=== PATIENT | female | born 1945 | race Hispanic/Latino ===

== ENCOUNTER 2025-01-27 15:52 | Emergency (ER) | payer MEDICARE, OTHER ==
[~2025-01-27] VITALS: Ht 162.6 cm; Wt 63.0 kg
--- NOTE | 2025-01-27 17:07 | NUR ---
THE PATIENT REPORTS TAKING 500MG TYLENOL AT 2PM TODAY FOR PAIN RELIEF. ER ROTARY PUMP OPERATOR MADE AWARE. PER ER ROTARY PUMP OPERATOR, ORDERED DOSE OF 1000MG TYLENOL TO BE D/C.
--- NOTE | 2025-01-27 18:17 | HMCIMG ---
STUDY CR Right Wrist, 3 view HISTORY Fall TECHNIQUE Three radiographic projections of the right wrist. COMPARISON None provided. FINDINGS Bones There is a small cortical fracture fragment along the dorsal aspect of the distal carpal row, most compatible with an acute triquetral avulsion fracture. No additional acute fracture or aggressive osseous lesion is identified. There is generalized osteopenia involving the distal radius, ulna, carpal bones, and metacarpals. Joints No dislocation is seen and carpal alignment is preserved. There are degenerative changes at the first carpometacarpal joint with subchondral sclerosis and periarticular osteophyte formation. Soft tissues There is soft tissue swelling involving the distal forearm, wrist joint region, and hand. IMPRESSION * Acute dorsal triquetral fracture, manifested as a small fracture fragment along the posterior aspect of the distal carpal row. 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 * No additional acute fracture or dislocation of the right wrist. /[place]
--- NOTE | 2025-01-27 18:38 | ERN ---
ED Note History of Present Illness Stated Complaint: RIGHT WRIST PAIN Chief Complaint: Wrist Pain/Injury Time Seen by MD: 15:59 Time Seen by Midlevel: 16:02 Dictation: 79-year-old female coming in with complaints of right wrist pain. Patient states this morning she woke up fell backwards and use her hand to break her fall and is complaining of pain to that wrist. No other complaints. Denies any head injury, denies any blood thinners. Allergies: Coded Allergies: Penicillins (Verified Allergy, Unknown, 06/12/15) Past Medical History Past Medical History: Hypertension Additional Past Medical Hx: BREAST CANCER, COLON CANCER Surgical History: Other Surgical History Other: RIGHT MASTECTOMY Review of System Dictation Constitutional: Negative for fever,chills, and weight loss Eyes: Negative for injury, pain,redness, and discharge ENT: Negative for injury,pain or swelling Cardiovascular: Negative for chest pain, palpitations, and edema Respiratory: Negative for shortness of breath, cough, and wheezing, Abdomen/GI: Negative for abdominal pain, nausea, vomiting, diarrhea, and constipation Back: Negative for injury and pain : Negative for injury, bleeding and discharge MS/Extremity: Right wrist pain Skin: Negative for rash, and discoloration Neuro: Negative for headache, weakness, numbness, tingling, and seizure Psych: Negative for suicide ideation, homicidal ideation, and hallucinations Review of Systems: was completed Initial Vital Sign VS Vital Signs Date Time Temp Pulse Resp B/P (MAP) Pulse Ox O2 Delivery O2 Flow Rate FiO2 01/27/25 15:53 97.9 71 16 159/72 98 Room Air 01/27/25 17:10 0 21 Physical Exam Dictation General: awake, alert, NAD Head/Face: Normocephalic, atraumatic Eyes: PERRL, EOMI, vision at baseline ENT: oral cavity clear, TMs clear, no signs of infection Neck: Trachea midline, supple, no nuchal rigidity Cardiovascular: RRR, normal S1/S2, No MRGs, no JVD Respiratory: CTAB, no respiratory distress, No rales or wheezes Abdomen: Soft, non-tender, non-distended, normal bowel sounds, no guarding or rebound. Skin: Warm, dry, normal turgor, no rash MS/Extremity: Pulses equal, no cyanosis, neurovascular intact, FROM , palpation to the right wrist notable ecchymosis and swelling Neuro: COAx4, GCS 15, strength 5/5, CN 2-12 intact, normal cerebellar exam, normal gait, Psych: Normal behavior, mood, and affect normal ED Course ED Course Orders Procedure Category Date Status Time Wrist Comp 3+Vws Rt RAD 01/27/25 Resulted 16:13 Acetaminophen 500mg PHA 01/27/25 Complete Tab (Tylenol 500mg T 17:00 Current Medications Medications (Trade) Dose Ordered Sig/Ulisses Route PRN Reason Start Time Stop Time Status Last Admin Dose Admin Acetaminophen (TYLenol 500MG TAB) 1,000 mg ONCE ONCE PO 01/27/25 17:00 01/27/25 17:01 DC Vital Signs Date Time Temp Pulse Resp B/P (MAP) Pulse Ox O2 Delivery O2 Flow Rate FiO2 01/27/25 17:10 97.9 71 16 159/72 98 Room Air* 0 21 01/27/25 15:53 97.9 71 16 159/72 98 Room Air Medical Decision Making MDM MDM: 79-year-old female coming in with complaints of right wrist pain. Patient states this morning she woke up fell backwards and use her hand to break her fall and is complaining of pain to that wrist. No other complaints. Denies any head injury, denies any blood thinners. Shows acute dorsal triquetral fracture. Patient will be put on a volar splint and follow up with orthopedic outpatient. It discussed on red flag symptoms of when to return back to the emergency room and went to follow up with PCP. Patient verbalized understanding, answered all questions. Differential diagnosis: Wrist fracture, wrist contusion, wrist dislocations Rationale: Tests considered and ordered secondary to shared decision making include: Previous outside records reviewed: Old ER visits. Risk of complication and/or morbidity or mortality of patient management: None Medications-Per medication reconciliation Need for hospitalization: Patient does not meet criteria for hospitalization. Need for emergency major/minor surgery: No There are no social concerns with this patient. Prescription drug management Prescriptions will include symptomatic care Patient's prior external medical records from other ER visits were reviewed by me as indicated. Prior testing and results from previous visits were reviewed. Prior tests were taken into account with medical decision making and resource utilization, independent historian/historians were used to obtain complete medical history. I independently interpreted the test that were performed, results were reviewed by me and considered findings on radiology if ordered. Medical management and examination interpretation discussions were had by me with other qualified healthcare professionals as indicated for the patient's care. DX & DISP Disposition: Discharge Departure Impression: Primary Impression: Fracture, triquetral bone Condition: Stable Additional Instructions: Take Tylenol or Motrin [id number] for pain control. Follow up with the orthopedic surgeon outpatient. Return to the hospital if you develop any worsening pain, swelling, numbness tingling to your fingertips. Referrals: ALFREDO SAN DO Time of Disposition: 18:37 I have reviewed the case, and I agree with, Diagnosis and Plan SHERYL SORTO [facility] Jan 27, 2025 18:38
[2025-01-27 18:43] VITALS: BP 178/78; PULSE 74; RESP 20; TEMP 98.2; O2SAT 99
--- NOTE | 2025-01-27 18:46 | NUR ---
PER ER TANKAGE SUPERVISOR, ORTHOGLASS VOLAR SPLINT APPLIED TO RIGHT WRIST. DISTALL PULSE AND CAPILLARY REFILL ARE NORMAL. PATIENT AND FAMILY AT [facility] EDUCATED ON SPLINT CARE AND VERBALIZED UNDERSTANDING.
== END 2025-01-27 18:48 | disposition home or self-care (01) ==
LOC: EDH 15:52
DX: S62.111A Displaced fracture of triquetrum [cuneiform] bone, right wrist, initial encounter for closed fracture (principal); I10 Essential (primary) hypertension; Z88.0 Allergy status to penicillin; Z85.3 Personal history of malignant neoplasm of breast; Z85.038 Personal history of other malignant neoplasm of large intestine; Z90.11 Acquired absence of right breast and nipple; W18.39XA Other fall on same level, initial encounter; Y93.89 Activity, other specified; Y92.89 Other specified places as the place of occurrence of the external cause; Y99.8 Other external cause status
CPT/HCPCS: 29125; 73110; 99283